=== PATIENT | female | born 1980 | race Caucasian/White ===

== ENCOUNTER 2017-01-10 13:54 | Emergency (ER) | payer SELFPAY ==
[2017-01-10 14:14] VITALS: BP 115/79; PULSE 78; RESP 16; TEMP 99.9; O2SAT 96
--- NOTE | 2017-01-10 14:43 | EDPHY ---
H & P Time Seen by Provider: 01/10/17 14:38 HPI/ROS: CHIEF COMPLAINT: Left thumb injury HISTORY OF PRESENT ILLNESS: 36-year-old left hand dominant female states that yesterday she was walking her dog, tripped and fell and hyper abducted her left thumb felt a pop. She notes decreased strength against resistance. No discoloration. Intact skin. No paresthesia. PHYSICAL EXAM (Prior to examination, patient consented to physical exam, hands were washed and my usual and customary physical exam procedures followed) 1) GENERAL: Well-developed, well-nourished, alert and oriented. Appears to be in no acute distress. 2) HEAD: Normocephalic 3) HEENT: Pupils equal, round, reactive to light bilaterally. 4) LUNGS: Breathing comfortably. 5) MUSCULOSKELETAL: Soft compartments. Normal coloration. She has weakness with abduction 6) SKIN: intact 7) VASCULAR: pulses and cap refill present are brisk 8) NEUROLOGIC: Radial, ulnar, median nerve function intact with no deficits appreciated on exam DIFFERENTIAL DIAGNOSIS: in no particular order including but not limited to fracture, sprain, compartment syndrome, gamekeeper's thumb Smoking Status: Never smoked Constitutional: Initial Vital Signs Temperature (C) 37.7 C 01/10/17 14:10 Heart Rate 78 01/10/17 14:10 Respiratory Rate 16 01/10/17 14:10 Blood Pressure 115/79 01/10/17 14:10 O2 Sat (%) 96 01/10/17 14:10 O2 Delivery Mode Room Air Allergies/Adverse Reactions: No Known Allergies Allergy (Unverified 01/10/17 14:10) Home Medications: Medication Instructions Recorded NK [No Known Home Meds] 01/10/17 MDM/Departure - MDM Procedures: Procedure: Splint A Velcro thumb spica splint was applied by ER fire extinguisher technician. After application of the splint I returned and re-examined the patient. The splint was adequately immobilizing the joint and distal to the splint the patient's circulation and sensation were intact. Patient shows no signs of compartment syndrome. Was given orthopedic precautions. ED Course/Re-evaluation: This patient has been informed that although no acute osseous abnormality is identified on x-ray ulnar collateral ligament and other soft tissue injury is not ruled out. I stressed the importance of follow-up with Hand surgery as this is her dominant hand. She has been splinted with a Velcro thumb spica given usual customary orthopedic precautions instructions. She verbalized understanding of discharge instructions. - Depart Disposition: Home, Routine, Self-Care Clinical Impression: Gamekeeper's thumb, left Qualifiers: Encounter type: initial encounter Qualified Code(s): S53.32XA - Traumatic rupture of left ulnar collateral ligament, initial encounter Condition: Good Instructions: Skier's Thumb (ED) Additional Instructions: Return to the ER immediately if you experience discoloration, have worsening pain, numbness, tingling, or any other symptoms that concern you. If you received x-rays in the emergency department today, be advised, that ligamentous , tendon, muscular, and other non-bony injury cannot be fully ruled out. Try to keep your affected extremity elevated above the level of your chest, and keep cold packs on the affected area, for the next 48 hours. Referrals: Chavez Lazo MD [Medical Doctor] - 5-7 days, call for appt. (Dr. Chavez Lazo is a hand surgeon)
== END 2017-01-10 14:45 | disposition home or self-care (01) ==
DX: S53.32XA Traumatic rupture of left ulnar collateral ligament, initial encounter (principal); W01.0XXA Fall on same level from slipping, tripping and stumbling without subsequent striking against object, initial encounter; Y99.8 Other external cause status; Y93.K1 Activity, walking an animal
CPT/HCPCS: L3807

== ENCOUNTER 2017-01-21 10:25 | Emergency (ER) | payer MEDICAID ==
[2017-01-21 10:50] VITALS: RESP 16
--- NOTE | 2017-01-21 11:28 | EDPHY ---
H & P Time Seen by Provider: 01/21/17 10:55 HPI/ROS: CHIEF COMPLAINT: Sore throat, dysphagia HISTORY OF PRESENT ILLNESS: 36-year-old female presents to the emergency department by private vehicle with worsening sore throat over the last 7 or 8 days. She feels a "lump" in her throat that is getting worse. She states that it is especially worse at night. It was causing her to gag. She denies chest pain or difficulty breathing. No fevers or chills. She had an occasional cough however no other respiratory symptoms. Denies respiratory distress. Denies abdominal pain or vomiting. REVIEW OF SYSTEMS: Constitutional: No fever, no chills. Eyes: No double or blurry vision. ENT: Sore throat, dysphagia as above Respiratory: No cough, no shortness of breath. Cardiac: No chest pain. Gastrointestinal: No abdominal pain, vomiting or diarrhea. Genitourinary: No dysuria. Musculoskeletal: No neck or back pain. Skin: No rashes. Neurological: No headache. Past Medical/Surgical History: Negative Social History: Life partner and lives in [place] Smoking Status: Never smoked Physical Exam: General Appearance: Alert, no distress. Vital signs are stable. Afebrile. Eyes: Pupils equal and round. Extraocular motions are all intact. ENT: Mouth: Mucous membranes moist. Mild posterior pharyngeal injection noted. No exudate. No stridor. Respiratory: No wheezing, rhonchi, or rales, lungs are clear to auscultation. Cardiovascular: Regular rate and rhythm. Gastrointestinal: Abdomen is soft and nontender, no masses, no rebound or guarding, bowel sounds normal. Neurological: Alert and oriented x 3, cranial nerves II through XII grossly intact Skin: Warm and dry, no rashes. Musculoskeletal: Nontender to palpate along the cervical, thoracic or lumbar spine. Neck is supple. Extremities: Full range of motion and no peripheral edema. Psychiatric: Patient is oriented X 3, there is no agitation. Constitutional: Initial Vital Signs Temperature (C) 36.4 C 01/21/17 10:48 Heart Rate 100 01/21/17 10:48 Respiratory Rate 16 01/21/17 10:48 Blood Pressure 122/95 H 01/21/17 10:48 O2 Sat (%) 98 01/21/17 10:48 O2 Delivery Mode Room Air Allergies/Adverse Reactions: No Known Allergies Allergy (Unverified 01/10/17 14:10) Home Medications: Medication Instructions Recorded NK [No Known Home Meds] 01/10/17 Medical Decision Making - Diagnostics Imaging Results: Imaging Impressions Neck CT 01/21/17 11:28 Impression: Normal CT of the neck soft tissues. Findings and recommendations discussed with Emergency Department physician, Bernadine Elias PA-C at 1315 hour, 01/21/2017. Final report concurs with initial preliminary interpretation. Imaging: Discussed imaging studies w/ call center associate Radiologist ED Course/Re-evaluation: Rapid strep test was negative. The patient has a feeling of a lump in her throat and is having difficulty swallowing. I explained to the patient that I was concerned about possible retropharyngeal abscess given that her symptoms are getting much worse. I recommended CT imaging with IV contrast soft tissue neck and the patient verbalized understanding and agreed. She is aware of the radiation exposure. CT imaging soft tissue neck was normal. The patient was reassured. Her laboratory studies are otherwise unremarkable. I do not think she needs admission to the hospital. She was given ENT referral. She was instructed to return to the emergency department if she developed fever, if she developed recurring dysphagia, or if she felt worse in any way. Differential Diagnosis: Including but not limited to strep pharyngitis, mononucleosis, retropharyngeal abscess, peritonsillar abscess, enlarged thyroid - Data Points Laboratory Results: Laboratory Results 01/21/17 11:13 01/21/17 01/21/17 01/21/17 Unknown 11:47 11:19 WBC RBC Hgb POC Hgb 15.6 gm/dL gm/dL (12.6-16.3) Hct POC Hct 46 % % (38-47) MCV MCH MCHC RDW Plt Count MPV Neut % (Auto) Lymph % (Auto) Millard % (Auto) Eos % (Auto) Baso % (Auto) Nucleat RBC Rel Count Absolute Neuts (auto) Absolute Lymphs (auto) Absolute Monos (auto) Absolute Eos (auto) Absolute Basos (auto) Absolute Nucleated RBC Immature Gran % Immature Gran # POC Sodium 141 mEq/L mEq/L (134-144) POC Potassium 3.8 mEq/L mEq/L (3.3-5.0) POC Chloride 104 mEq/L mEq/L (97-110) POC BUN 9 mg/dL mg/dL (7-23) POC Creatinine 0.7 mg/dL mg/dL (0.6-1.0) POC Glucose 93 mg/dL mg/dL (70-100) Group A Strep Screen NEGATIVE (NEGATIVE) Group A Strep DNA Pending 01/21/17 11:13 WBC 8.56 10^3/uL 10^3/uL (3.80-9.50) RBC 5.00 10^6/uL 10^6/uL (4.18-5.33) Hgb 14.4 g/dL g/dL (12.6-16.3) POC Hgb Hct 43.2 % % (38.0-47.0) POC Hct MCV 86.4 fL fL (81.5-99.8) MCH 28.8 pg pg (27.9-34.1) MCHC 33.3 g/dL g/dL (32.4-36.7) RDW 14.1 % % (11.5-15.2) Plt Count 231 10^3/uL 10^3/uL (150-400) MPV 10.9 fL fL (8.7-11.7) Neut % (Auto) 65.3 % % (39.3-74.2) Lymph % (Auto) 24.8 % % (15.0-45.0) Millard % (Auto) 5.1 % % (4.5-13.0) Eos % (Auto) 3.9 % % (0.6-7.6) Baso % (Auto) 0.7 % % (0.3-1.7) Nucleat RBC Rel Count 0.0 % % (0.0-0.2) Absolute Neuts (auto) 5.59 10^3/uL 10^3/uL (1.70-6.50) Absolute Lymphs (auto) 2.12 10^3/uL 10^3/uL (1.00-3.00) Absolute Monos (auto) 0.44 10^3/uL 10^3/uL (0.30-0.80) Absolute Eos (auto) 0.33 10^3/uL 10^3/uL (0.03-0.40) Absolute Basos (auto) 0.06 10^3/uL 10^3/uL (0.02-0.10) Absolute Nucleated RBC 0.00 10^3/uL 10^3/uL (0-0.01) Immature Gran % 0.2 % % (0.0-1.1) Immature Gran # 0.02 10^3/uL 10^3/uL (0.00-0.10) POC Sodium POC Potassium POC Chloride POC BUN POC Creatinine POC Glucose Group A Strep Screen Group A Strep DNA Point of Care Test Results: 01/21/17 11:19 POC Sodium 141 POC Potassium 3.8 POC Chloride 104 POC BUN 9 POC Creatinine 0.7 POC Glucose 93 Departure - Departure Disposition: Home, Routine, Self-Care Clinical Impression: Pharyngitis Qualifiers: Pharyngitis/tonsillitis etiology: unspecified etiology Qualified Code(s): J02.9 - Acute pharyngitis, unspecified Dysphagia Qualifiers: Dysphagia type: unspecified Qualified Code(s): R13.10 - Dysphagia, unspecified Condition: Good Instructions: Pharyngitis (ED), Dysphagia (ED) Additional Instructions: Adult Pain & Fever Control: We recommend Acetaminophen (Tylenol) and Ibuprofen (Motrin,Advil) for pain and fever control. When fever is high or pain severe, both drugs can be used at the same time, but at different intervals. Please note the time differences. Your dose is: Acetaminophen 1000mg every 4 to 6 hours Ibuprofen 600mg every 8 hours with food Note: do not take Acetaminophen with Hydrocodone (Vicodin, Lortab) or Oycodone (Percocet). These medications also contain Acetaminophen. No more than 3000mg of Acetaminophen should be taken in 24 hours (for an adult). Call [phone] for the results of your throat culture in 48 hours. Referrals: Nury Arthur MD [Medical Doctor] - 2-3 days, if not improved (Primary care provider educational coordinator) Tiburcio Kim MD [Medical Doctor] - 2-3 days, call for appt. (ENT on-call)
[2017-01-21 11:34] LABS: % IMMATURE GRANULYOCYTES 0.2 % (0.0-1.1); ABSOLUTE IMMATURE GRANULOCYTES 0.02 10^3/uL (0.00-0.10); ADD DIFF? NO; ADD MORPH? NO; ADD SCAN? NO; ATYPICAL LYMPHOCYTE FLAG 20 (0-99); FRAGMENT RBC FLAG 0 (0-99); HEMATOCRIT 43.2 % (38.0-47.0); HEMOGLOBIN 14.4 g/dL (12.6-16.3); LEFT SHIFT FLG 0 (0-99); LIPEMIA HEMOLYSIS FLAG 80 (0-99); MEAN CELL HEMOGLOBIN 28.8 pg (27.9-34.1); MEAN CELL HEMOGLOBIN CONCENTR. 33.3 g/dL (32.4-36.7); MEAN CELL VOLUME 86.4 fL (81.5-99.8); MEAN PLATELET VOLUME 10.9 fL (8.7-11.7); PLATELET CLUMPS FLAG 20 (0-99); PLATELET COUNT 231 10^3/uL (150-400); RED CELL DISTRIBUTION WIDTH 14.1 % (11.5-15.2)
[2017-01-21] MEDS ORDERED: IOPAMIDOL (ISOVUE-300) 100 ML BTL ONE (12:27)
[2017-01-21 13:39] VITALS: BP 123/86; PULSE 56; TEMP 98.6; O2SAT 96
== END 2017-01-21 13:39 | disposition home or self-care (01) ==
DX: J02.9 Acute pharyngitis, unspecified (principal); R13.10 Dysphagia, unspecified
CPT/HCPCS: 82947-QW; Q9967